=== PATIENT | female | born 1945 | race Caucasian/White ===

== ENCOUNTER → 2016-10-16 | Outpatient (CLI) | payer MEDICARE, OTHER ==
--- NOTE | 2016-10-16 21:08 | XCELERA REPORT ---
[address] [address] Transthoracic Echocardiogram Report Name: TO WILLIAM Ana Age: 71 yrs Gender: Female : 1945 Patient Status: Outpatient Patient Location: Study Date: 10/16/2016 01:30 PM Height: 67 in Weight: 213 lb BSA: 2.1 m2 Reason For Study: EDEMA Ordering Physician: JESSE ENGLE Performed By: Ning Griffin Interpretation Summary technically poor study due to obesity. No pulm hypertension. Normal LVEF, no LVDD. Incomplete LV segmental analysis. No LA enlargement by M-Mode. MMode/2D Measurements \T\ Calculations RVDd: 2.6 cm LVIDd: 5.1 cm FS: 38.2 % Ao root diam: 2.8 cm IVSd: 1.3 cm LVIDs: 3.2 cm EDV(Teich): 123.8 ml LVPWd: 1.0 cm ESV(Teich): 39.4 ml Ao root area: 6.2 cm2 EF(Teich): 68.2 % LA dimension: 4.2 cm Doppler Measurements \T\ Calculations MV E max brianne: MV P1/2t max brianne: Ao V2 max: LV V1 max P.0 cm/sec 79.0 cm/sec 156.1 cm/sec 7.5 mmHg MV A max brianne: MV P1/2t: 75.3 msec Ao max PG: LV V1 max: 81.4 cm/sec 9.7 mmHg 137.2 cm/sec MV E/A: 0.96 MVA(P1/2t): 2.9 cm2 MV dec slope: 307.2 cm/sec2 PA V2 max: TR max brianne: 109.1 cm/sec 240.5 cm/sec PA max PG: TR max P.1 mmHg 4.8 mmHg Left Ventricle The left ventricle is grossly normal size. The left ventricular ejection fraction is normal. Doppler measurements suggest normal left ventricular diastolic function. No regional wall motion abnormalities noted. There is no thrombus. Right Ventricle The right ventricle is not well visualized secondary to technical limitations. Atria Right atrium not well visualized secondary to technical limitations. The left atrial size is normal. The interatrial septum is intact with no evidence for an atrial septal defect. Mitral Valve The mitral valve is normal in structure and function. There is no evidence of mitral valve prolapse. There is no mitral valve stenosis. There is no mitral regurgitation noted. Aortic Valve The aortic valve is trileaflet. The aortic valve opens well. There is no aortic valvular vegetation. There is no aortic valve stenosis. No aortic regurgitation is present. Tricuspid Valve The tricuspid is normal in structure and function. There is no tricuspid valve prolapse. There is no tricuspid stenosis. Right ventricular systolic pressure is normal. Pulmonic Valve The pulmonic valve is not well visualized. There is no pulmonic valvular regurgitation. Great Vessels The aortic root is normal size. Effusions There is no pericardial effusion. I WMSI = 1.00 % Normal = 100 Segments Size X - Cannot 1 - Normal 2 - 3 - Akinetic4 - 1-2 small Interpret Hypokinetic Dyskinetic 3-5 moderate 5 - 6-14 large Aneurysmal 15-16 diffuse : JESSE ENGLE > Sandro Porter
== END ==
LOC: SP 12:25
PROVIDERS: ATTEND Family Medicine
DX: R60.0 Localized edema (principal)
CPT/HCPCS: 93306